=== PATIENT | male | born 1970 | race Caucasian/White ===

== ENCOUNTER 2023-09-03 15:30 | Outpatient (RCR) | payer BC, SELFPAY ==
--- NOTE | 2023-06-26 16:11 | HP.PTREVAL ---
Re-Evaluation Intro: Dr. Alejandro Yang, DPM, It has been my pleasure to treat ANDERSON NAVARRO over the last 1 visits for B Plantarfascitis. Please see the progress note below for an update on the physical therapy plan of care! Plan Plan Plan: B ankle DF stretching, DTR, graston tool DTR, US, and HEP Balance/Gait/Functional tests Balance/Special Test Scores Lower Extremity Functional Score: 55 Goals Goals Goal 1:: Increase B ankle DF ROM x 5-10 degrees to aid with decreasing pain Goal Time Frame: 4-6 Weeks Goal 2:: I with HEP Goal Time Frame: 4-6 Weeks Goal 3:: Pt will be able to ambulate 1000 feet with no increase in pain to aid with community ambulation Goal Time Frame: 4-6 Weeks Goal 4:: Increase LEFS x 10 points to aid with improving LE functional mobility Anticipated Interventions Anticipated Interventions Patient/Client Instruction: Educate patient on: Condition and Plan of Care For the Purpose of:: To improve self management Manual Therapy Techniques to Include: Soft tissue mobilization For the Purpose of:: To decrease pain and To increase ROM Ultrasound (thermal/non thermal): Yes For the Purpose of:: To decrease pain and To increase ROM Re-Evaluation Ending Re-evaluation ending: Please do not hesitate to contact me at [phone] by phone or if you have questions or concerns regarding this new plan of care! Sincerely, Gualberto Morrison, PT, ATC
--- NOTE | 2023-06-26 16:13 | HP.PTEVAL_ITS ---
Patient's Visit Information Visit Information Visit Information: ANDERSON NAVARRO is a 53 year old M referred to Physical Therapy by Dr. Alejandro Yang DPM with a diagnosis of B Plantarfascitis. 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 Pt reports he had B heel spur removal in 1999 and 2000, for the L and R heel respectively. Pt rep orts the pain was gone after the surgery, but returned over the past 12-18 months. Pt notes it is now hard to walk around for prolonged periods, or to stand for long periods of time, secondary to pain. Pt notes he has been trying to decrease the pain with rolling his foot on golf balls and an ice water bottle, but the pain remains. Pt has had recent xrays which revealed no significant findings. Pt reports most of his pain is on the origin site of the plantarfascia. Pt denies tingling and numbness in feet on todays date. Pt denies sleep difficulty at this time secondary to pain. Pt reports he has LBP that is being treated by a chiropractor at this time. 1/10 pain while sitting here at rest, 7/10 pain at worst. Pt has stairs at home, but no difficulty with negotiation at this time. Pain B feet: Pain Intensity (Out of 10): 1 Pain Intensity Range: 7 Objective Objective: Neuro: B LE sensation is WNL to light touch. B patellar reflex= 1/3 Palpation: Pt is sore at the origin and throughout the body of B plantarfascias. No obvious deformity at this time. ROM: R ankle DF= 7, PF= 40; L ankle DF= 11, PF= 45 MMT: B ankle's are grossly 5/5 throughout Gait: Pt ambulates with no significant deviations at this time Balance/Special Test Scores Lower Extremity Functional Score: 55 Goals Goal 1:: Increase B ankle DF ROM x 5-10 degrees to aid with decreasing pain Goal Time Frame: 4-6 Weeks Goal 2:: I with HEP Goal Time Frame: 4-6 Weeks Goal 3:: Pt will be able to ambulate 1000 feet with no increase in pain to aid with community ambulation Goal Time Frame: 4-6 Weeks Goal 4:: Increase LEFS x 10 points to aid with improving LE functional mobility Rehabilitation Potential Physical Therapy Diagnosis: Pt has B foot pain, limited DF ROM, and difficulty with prolonged ambulation secondary to B plantarfascitis. Rehabilitation Potential: Good Anticipated Interventions Patient/Client Instruction: Educate patient on: Condition and Plan of Care For the Purpose of:: To improve self management Manual Therapy Techniques to Include: Soft tissue mobilization For the Purpose of:: To decrease pain and To increase ROM Ultrasound (thermal/non thermal): Yes For the Purpose of:: To decrease pain and To increase ROM Text: Thank you for the opportunity to evaluate your patient. For Medicare and Medicare HMO plans, please review the plan of care and approve it. It will need to be FAXED BACK to us at [phone] for Medicare purposes. For Medicare only, by signing this I certify the plan of care. Please let me know if there are questions or concerns regarding this plan of care. Physician Signature: Date:
--- NOTE | 2023-08-05 16:42 | HP.PTREVAL ---
Re-Evaluation Intro: Dr. Alejandro Yang, DPM, It has been my pleasure to treat ANDERSON NAVARRO over the last 12 visits for B Plantarfascitis. Please see the progress note below for an update on the physical therapy plan of care! Subjective Subjective: Pt reports he still gets cramps in his ankles and calves Objective Objective/Function: ROM: L ankle DF= 10, R ankle DF= 14 degrees Gait: Pt is able to ambulate greater than 1000 feet without difficulty LEFS: 61/80 Pt is now I with HEP Plan Plan Plan: B ankle eccentric strengthening, LE strengthening, gastroc/soleus stretching, manual therapy to plantar surface of foot, HEP Balance/Gait/Functional tests Balance/Special Test Scores Lower Extremity Functional Score: 61 Goals Goals Goal 1:: Increase B ankle DF ROM x 5-10 degrees to aid with decreasing pain Goal Time Frame: 4-6 Weeks Goal Progress: Progressing Goal 2:: I with HEP Goal Time Frame: 4-6 Weeks Goal Progress: Goal Met Goal 3:: Pt will be able to ambulate 1000 feet with no increase in pain to aid with community ambulation Goal Time Frame: 4-6 Weeks Goal Progress: Goal Met Goal 4:: Increase LEFS x 10 points to aid with improving LE functional mobility Goal Progress: Progressing Anticipated Interventions Anticipated Interventions Patient/Client Instruction: Educate patient on: Condition and Plan of Care For the Purpose of:: To improve self management Therapeutic Exercise to Include: Strength training, Flexibilty training and Neuromotor development For the Purpose of:: To decrease pain and To improve ability of physical actions for home/community/work/leisure Manual Therapy Techniques to Include: Soft tissue mobilization For the Purpose of:: To decrease pain and To increase ROM Ultrasound (thermal/non thermal): Yes For the Purpose of:: To decrease pain and To increase ROM Re-Evaluation Ending Re-evaluation ending: Please do not hesitate to contact me at [phone] by phone or if you have questions or concerns regarding this new plan of care! Sincerely, Gualberto Morrison, PT, ATC
--- NOTE | 2023-09-03 16:05 | HP.PTDCSUM ---
Discharge Summary D/C summary: It has been my pleasure to treat ANDERSON NAVARRO referred by Dr. Alejandro Yang DPM, with the diagnosis of B Plantarfascitis for a total of 12 visit(s). Discharge Date: Please see the following information for a summary of their discharge status. Subjective Subjective: I am still about the same Pain B feet: Pain Intensity (Out of 10): 1 bilat knees: Pain Intensity (Out of 10): 4 Overall Improvement % Improvement: 80 Objective Objective/Function: L foot pain is 1/10, R foot pain is 3/10 Pt is able to ambulate 1000 feet with out difficulty ROM: L ankle DF= 10, R ankle DF= 10 degrees Pt is I with HEP Goals Goal 1:: Increase B ankle DF ROM x 5-10 degrees to aid with decreasing pain Goal Progress: Progressing Goal 2:: I with HEP Goal Progress: Goal Met Goal 3:: Pt will be able to ambulate 1000 feet with no increase in pain to aid with community ambulation Goal Progress: Goal Met Goal 4:: Increase LEFS x 10 points to aid with improving LE functional mobility Goal Progress: Progressing Plan Plan: Discharge to HEP D/C Information d/c sentence: If there are questions or concerns regarding this patient's physical therapy, please feel free to call me at [phone]. Thank you for the referral of this patient. Sincerely, Gualberto Morrison, PT, ATC Balance/Gait/Functional tests Balance/Special Test Scores Lower Extremity Functional Score: 60 Improvement % Improvement: 80
== END 2023-09-03 19:00 | disposition home or self-care (01) ==
LOC: PT 15:30
PROVIDERS: Referring Provider Student in an Organized Health Care Education/Training Program; Visit Provider Student in an Organized Health Care Education/Training Program
DX: M72.2 Plantar fascial fibromatosis (principal)
CPT/HCPCS: 97035; 97110; 97140; 97161; 97164

== ENCOUNTER → 2024-03-04 | Outpatient (CLI) | payer BC, SELFPAY ==
[2024-03-04 15:02] LABS: Hematocrit 47.1 % (40-54); Hemoglobin 15.8 g/dL (13.0-16.5); Mean Corp Hgb Conc 33.5 g/dL (32-36); Mean Corpuscular Hgb 30.2 pg (27.0-32.0); Mean Corpuscular Volume 89.9 fL (80-94); Mean Platelet Vol. 9.7 fl (6.2-12.0); Platelet Count 251 K/mm3 (150-450); RBC Distribution Width CV 13.8 % (11.6-14.6); RBC Distribution Width SD 45.5 fl (35.1-43.9); Red Blood Count 5.24 M/mm3 (4.6-6.2); White Blood Count 8.4 K/mm3 (4.4-11.0)
[2024-03-04 15:28] LABS: AST(SGOT) 20 U/L (15-37); Alanine Aminotransfer ALT/SGPT 37 U/L (16-61); Albumin, Serum 3.8 g/dL (3.2-5.0); Alkaline Phosphatase 96 U/L (45-117); Anion Gap 7 (5-15); BUN 14 mg/dL (7-18); BUN/Creat Ratio 13.6 RATIO (10-20); Calcium,Total 8.5 mg/dL (8.5-10.1); Chloride 112 mmol/L (98-107); Creatinine, Serum 1.03 mg/dL (0.70-1.30); EST Glomerular Filtration Rate 80 mL/min (>60); Est Glom Filt Rate - Afr Amer 97 mL/min (>60); Globulin 3.7 g/dL (2.2-4.2); Glucose 86 mg/dL (74-106); Potassium 3.8 mmol/L (3.5-5.1); Protein, Total 7.5 g/dL (6.4-8.2); Sodium Level 140 mmol/L (136-145)
== END | disposition home or self-care (01) ==
LOC: MTLAB 11:05
PROVIDERS: PCP Family Medicine; Referring Provider Psychiatry & Neurology Neurology; Visit Provider Psychiatry & Neurology Neurology
DX: G43.009 Migraine without aura, not intractable, without status migrainosus (principal)
CPT/HCPCS: 36415; 80053; 80201; 82140; 85027

== ENCOUNTER → 2024-03-22 | Outpatient (CLI) | payer BC, SELFPAY ==
--- NOTE | 2024-03-22 14:04 | MRI_ITS ---
HISTORY: migraine headaches. TECHNIQUE: Multiplanar and multisequence MR images of the brain were obtained without contrast. 272 images. COMPARISON: None. FINDINGS: BRAIN PARENCHYMA: No significant signal abnormality in the brain parenchyma. No abnormal focus of restricted diffusion to suggest acute infarct. No acute intracranial hemorrhage identified. CSF SPACES: Cerebral ventricles, cortical sulci, and other extra-axial CSF spaces within normal limits in size for age. No significant midline shift or other mass effect.No extra-axial fluid collection. VASCULAR SYSTEM: Major intracranial flow voids are maintained. PARANASAL SINUSES AND MASTOID AIR CELLS: No significant air fluid levels. ORBITS: Symmetric contents. MRI/Brain without Contrast IMPRESSION: Unremarkable examination. No evidence for significant signal abnormality in the brain. Electronically Signed: Khloe Chen MD at 15:08 EDT ,
== END | disposition home or self-care (01) ==
LOC: MRI 14:00
PROVIDERS: PCP Family Medicine; Referring Provider Psychiatry & Neurology Neurology; Visit Provider Psychiatry & Neurology Neurology
DX: G43.009 Migraine without aura, not intractable, without status migrainosus (principal)
CPT/HCPCS: 70551

== ENCOUNTER 2024-08-27 11:10 | Day surgery (SDC) | payer BC, SELFPAY ==
[2024-08-27] VITALS (7 sets, daily range): BP systolic 121–157; BP diastolic 71–99; PULSE 60–64; RESP 16–17; TEMP 36.1–36.3; O2SAT 95–98; BMI 43.9
[2024-08-27] MEDS: Lactated Ringers 1,000 ML 15 ML IV (11:31)
[2024-08-27] MEDS: Cefazolin 3 GM in Syringe IV (13:28)
[2024-08-27] MEDS: Bupivacaine Mpf 0.5% 30 ML VIAL (13:43)
[2024-08-27] MEDS: Lidocaine 1% (20 ml mdv) 20 ML Vial (13:58)
== END 2024-08-27 15:58 | disposition home or self-care (01) ==
LOC: SDC 11:11 → AC 11:12
PROVIDERS: PCP Family Medicine; Referring Provider Student in an Organized Health Care Education/Training Program; Visit Provider Student in an Organized Health Care Education/Training Program
PROC: (CPT 28008; principal; 2024-08-27 12:45)
DX: M72.2 Plantar fascial fibromatosis (principal)
CPT/HCPCS: 28008; 01470; J7120; J2405